=== PATIENT | female | born 1950 | race Caucasian/White ===

== ENCOUNTER 2017-03-03 21:27 | Emergency (ER) | payer MEDICARE, MEDICAID ==
[~2017-03-03] VITALS: Ht 162.6 cm; Wt 68.0 kg
[~2017-03-03 21:27] MED LIST: DIAZ5 PO; IBUP-232 PO; INSU100V SQ
[2017-03-03 21:29] VITALS: BP 143/83; PULSE 83; RESP 16; TEMP 98.1; O2SAT 95
--- NOTE | 2017-03-03 21:59 | PD ---
HPI Chief Complaint: Pain: Acute or Chronic Time Seen by Provider: 21:51 Travel History International Travel<30 days: No Contact w/Intl Traveler<30days: No Traveled to known affect area: No History of Present Illness HPI 66-year-old white female presents to emergency Department with complaints of right foot pain. She states that she accidentally struck her foot at home into a piece of furniture. She was barefoot at the time. She complains of pain in her second and fourth toe. She denies any numbness or tingling. Pain is mild to moderate. Worse with ambulation. No other injury. Some relief with elevation. 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) Hepatitis: No Hiatal Hernia: No Hypertension: No Neurologic: Yes (BRAIN ANEURYSM-DX 08/22; VERTIGO) Respiratory: Yes (asthma) Migraines: Yes Thyroid Disease: No Menopausal: Yes : 6 Para: 6 Past Surgical History Abdominal Surgery: Yes (gallbladder removed) Cholecystectomy: Yes Ear Surgery: Yes (LEFT INNER EAR SURGERY) Other Surgery: Yes Social History Alcohol Use: No Tobacco Use: Yes (/2 ppd) Substance Use: No Allergies-Medications (Allergen,Severity, Reaction): Coded Allergies: morphine (Unverified Allergy, Severe, abd pain, 03/03/17) penicillin G (Unverified Allergy, Severe, RASH, 03/03/17) amoxicillin (Unverified Allergy, Mild, BURNING STOMACH, 03/03/17) levofloxacin (Unverified Allergy, Mild, Nausea/Vomiting, 03/03/17) cefaclor (Unverified Allergy, Unknown, 03/03/17) Reported Meds & Prescriptions Reported Meds & Active Scripts Active Diclofenac Sodium DR (Diclofenac Sodium) 75 Mg Tabdr 75 Mg PO BID Ibuprofen 600 Mg Tab 600 Mg PO Q8HR PRN Valium (Diazepam) 5 Mg Tab 5 Mg PO QIDPRN Reported Humalog Mix 75/25 (Insulin Lispro Protam/Lispro Human) 100 Units/Ml Inj 18 Units SQ BID Review of Systems General / Constitutional: No: Fever Eyes: No: Visual changes HENT: No: Headaches Cardiovascular: No: Chest Pain or Discomfort Respiratory: No: Shortness of Breath Gastrointestinal: No: Abdominal Pain Genitourinary: No: Dysuria Musculoskeletal: Positive: Arthralgias, Limited ROM, Edema, Pain Skin: No Rash Neurologic: No: Weakness Psychiatric: No: Depression Endocrine: No: Polydipsia Hematologic/Lymphatic: No: Easy Bruising Physical Exam Narrative GENERAL: This is a well-nourished, well-developed patient, in no apparent distress. SKIN: No rashes, or lesions. Warm and dry. HEAD: Atraumatic. Normocephalic. EYES: PERRL, EOMI, no discharge or injection. No scleral icterus. EARS: Clear NOSE: Nasal turbinates appear normal. THROAT: Mucosa pink and moist. Airway patent. NECK: Trachea midline. supple, moves head freely. LUNGS: Clear to auscultation. CV: Regular in rhythm. ABDOMEN: Soft nontender. EXT: No clubbing cyanosis. Examination of the right foot reveals tenderness and some ecchymosis in the fourth toe. There is some mild discomfort in the second toe. The big toe, the third toe, and the fifth toe are unremarkable. Intact skin. She has good distal pulses and Refill. Data Data Last Documented VS Vital Signs Date Time Temp Pulse Resp B/P (MAP) Pulse Ox O2 Delivery O2 Flow Rate FiO2 03/03/17 21:29 98.1 83 16 143/83 (103) 95 Room Air Orders Orders Foot, Complete ([id number]) (03/03/17 21:53) Naproxen (Naprosyn) (03/03/17 23:00) [facility] Medical Decision Making Medical Screen Exam Complete: Yes Emergency Medical Condition: Yes Medical Record Reviewed: Yes Interpretation(s) Last 24 hours Impressions Foot X-Ray 03/03/17 5608 Signed Impressions: Service Date/Time: Friday, March 03, 2017 21:57 - CONCLUSION: Fracturing at the proximal aspect of the fourth proximal phalanx. Cristhian Perrin MD Differential Diagnosis MDM: High Differential diagnoses: Fracture, sprain, strain, dislocation, contusion, neurovascular injury Narrative Course X-ray of the right foot reveals a fracture of the base of the fourth toe. It is not displaced. Patient's injury occurred 2 weeks ago. She is given Naprosyn 500 mg by mouth and her toe is tommy taped to the third toe. This is right fourth toe fracture Diagnosis Primary Impression: Fracture of right toe Qualified Codes: S92.514A - Nondisplaced fracture of proximal phalanx of right lesser toe(s), initial encounter for closed fracture Patient Instructions: General Instructions Additional Instructions: Rest. Elevation. Ice for any acute swelling or pain. Diclofenac. Soft comfortable open toe shoes. Tommy tape your third and fourth toe for the next 2 weeks. Follow-up with your primary care doctor or a radio engineer in 1-2 weeks. Return to the ER for any medical problems. Med/Other Pt SpecificInfo: Prescription(s) given Scripts Diclofenac Sodium DR (Diclofenac Sodium DR) 75 Mg Tabdr 75 MG PO BID, #20 TAB 0 Refills Prov: Joan Orta MD 03/03/17 Disposition: 01 DISCHARGE HOME Condition: Stable Johnny Watson Mar 03, 2017 21:59
--- NOTE | 2017-03-03 22:11 | RADRPT ---
EXAM DATE/TIME: 03/03/2017 21:57 [facility] COMPARISON: No previous studies available for comparison. INDICATIONS : Pain from impact with object. MEDICAL HISTORY : None. SURGICAL HISTORY : None. ENCOUNTER: Initial ACUITY: 2 weeks PAIN SCORE: 5/10 LOCATION: Right foot, second, third, and fourth digits. FINDINGS: There is acute fracture the proximal aspect of the fourth proximal phalanx. No other fracture is seen . The bones and joints appear grossly normally aligned. The bones are osteopenic. CONCLUSION: Fracturing at the proximal aspect of the fourth proximal phalanx. Cristhian Perrin MD on March 03, 2017 at 22:07 Board Certified Radiologist. This report was verified electronically.
[2017-03-03] MEDS ORDERED: DICL75TA PO (22:58)
[2017-03-03] MEDS ORDERED: NAPROXEN 500 MG TAB PO ONE (23:00)
== END 2017-03-03 23:12 | disposition home or self-care (01) ==
LOC: NEPD 21:27
DX: S92.511A Displaced fracture of proximal phalanx of right lesser toe(s), initial encounter for closed fracture (principal); J45.909 Unspecified asthma, uncomplicated; E11.9 Type 2 diabetes mellitus without complications; F17.200 Nicotine dependence, unspecified, uncomplicated; W22.03XA Walked into furniture, initial encounter; Z79.4 Long term (current) use of insulin; Z79.899 Other long term (current) drug therapy; Z88.0 Allergy status to penicillin
CPT/HCPCS: 28510; 73630